=== PATIENT | female | born 1970 | race Caucasian/White ===

== ENCOUNTER 2020-03-06 13:55 | Emergency (ER) | payer BC, SELFPAY ==
[2020-03-06 14:21] LABS: Basophils Absolute Auto 0.1 K/mm3 (0.0-0.1); Basophils Percent Auto 0.7 % (0.2-1.2); Eosinophils Percent Auto 0.3 % (0-4.4); Hemoglobin 16.6 g/dL (12.0-15.0); Immature Granulocyte Absolute 0.03 K/mm3 (0.00-0.031); Immature Granulocyte Percent A 0.3 % (0-0.5); Immature Platelet Fraction Pct 3.9 % (0.9-11.2); Lymphocytes Percent Auto 14.7 % (18.3-44.2); Mean Corpuscular HGB Conc 33.2 g/dl (32-36); Mean Corpuscular Hemoglobin 31.4 pg (26-34); Mean Corpuscular Volume 94.5 fl (80-100); Mean Platelet Volume 11.2 fl (7.4-10.4); Monocytes Absolute Auto 0.5 K/mm3 (0.1-0.6); Monocytes Percent Auto 5.7 % (2.6-8.5); Neutrophils Absolute Auto 6.9 K/mm3 (1.3-6.7); Neutrophils Percent Auto 78.3 % (45.5-73.1); Platelet Count Result 140 k/mm3 (150-375); Red Blood Count 5.29 M/mm3 (4.2-5.4); Red Cell Distribution Width 13.9 % (11.5-14.5); White Blood Count 8.9 K/mm3 (4.5-10.0)
[2020-03-06 14:31] LABS: Alanine Aminotransferase 96 U/L (4-35); Albumin Level 4.5 g/dL (3.5-5.1); Alkaline Phosphatase 181 U/L (38-126); Anion Gap 14.1 mmol/L (7-16); Aspartate Amino Transferase 113 U/L (14-36); Blood Urea Nitrogen 5 mg/dL (7-17); Calcium 9.1 mg/dL (8.4-10.2); Carbon Dioxide 22 mmol/L (22-30); Chloride 100 mmol/L (98-107); Estimated CRCL calculation 183 ml/min; Estimated Glomerular Filt Rate > 60; Glucose 276 mg/dL (65-105); Lipase 48 U/L (23-300); Potassium 4.1 mmol/L (3.4-5.0); Sodium 132 mmol/L (137-145)
--- NOTE | 2020-03-06 14:52 | ED.NAVMDI ---
HPI - Nausea/Vomiting/Diarrhea General Chief complaint: Nausea/Vomiting/Diarrhea Stated complaint: dehydrated Time Seen by Provider: 03/06/20 14:43 History of Present Illness HPI Narrative: She awoke this morning feeling achey all over. She had multiple episodes of vomiting and diarrhea. She was worried that she may be dehydrated. She was able to keep down some pedialyte and is feeling slightly better now. Related Data Home Medications Medication Instructions Recorded Confirmed alprazolam 0.25 mg tablet 0.25 mg PO TID 07/19/19 02/25/20 Allergies Allergy/AdvReac Type Severity Reaction Status Date / Time amoxicillin Allergy Unknown Unknown Verified 03/06/20 14:02 lisinopril Allergy Unknown Unknown Verified 03/06/20 14:02 Review of Systems Review of Systems: All systems reviewed & are unremarkable except as noted in HPI and below Constitutional: Constitutional: Denies fever(s) ENT: Denies sore throat Cardiovascular: Cardiovascular: Denies chest pain Respiratory: Respiratory: Denies dyspnea Gastrointestinal: Gastrointestinal: Reports nausea and Reports vomiting Genitourinary: Genitourinary: Denies dysuria Neurologic: Denies dizziness and Denies weakness [facility] Past Medical History Medical History Anxiety Essential hypertension Uncontrolled type 2 diabetes mellitus with hyperglycemia Family History Family History Other Diabetes mellitus Family history of cardiovascular disease Family history of malignant neoplasm Hypertension Social History Social History Smoking status: Smoker, status unknown Alcohol intake: current Gender identity (if verbalized by the patient): Female Exam Const: General: no acute distress, alert and ill appearing Orientation/consciousness: patient oriented x3 HENMT: Head: normal to inspection Resp: Effort & Inspection: normal respiratory effort Auscultation: clear to auscultation bilaterally Cardio: Rate: regular rate Rhythm: regular rhythm GI: GI Palp: Yes Soft to palpation and No Tenderness to palpation present (GI) Skin: General skin exam: normal color Neuro: General: patient oriented x3, moves all extremities and CN's II-XI intact bilaterally Speech: normal speech Extrem: General: normal to inspection Course Vital Signs Vital signs: Vital Signs Pulse Rate 60 03/06/20 15:10 Respiratory Rate 19 03/06/20 15:10 Blood Pressure 185/100 H 03/06/20 15:10 Pulse Oximetry 100 03/06/20 15:10 Pulse Rate 75 03/06/20 17:44 Respiratory Rate 18 03/06/20 17:44 Blood Pressure 138/72 03/06/20 17:44 Pulse Oximetry 100 03/06/20 17:44 MDM - Nausea/Vomiting/Diarrhea Medical Records Attestation: I reviewed the patient's medical records. Lab Data Attestation: I reviewed the patient's lab results. Result diagrams: 03/06/20 14:09 03/06/20 14:09 Labs: Lab Results 03/06/20 03/06/20 03/06/20 Range/Units 14:06 14:09 14:09 WBC 8.9 (4.5-10.0) K/mm3 RBC 5.29 (4.2-5.4) M/mm3 Hgb 16.6 H (12.0-15.0) g/dL Hct 50.0 H (37.0-47.0) % MCV 94.5 (80-100) fl MCH 31.4 (26-34) pg MCHC 33.2 (32-36) g/dl RDW 13.9 (11.5-14.5) % Plt Count 140 L (150-375) k/mm3 MPV 11.2 H (7.4-10.4) fl Immature Gran % (Auto) 0.3 (0-0.5) % Neut % (Auto) 78.3 H (45.5-73.1) % Lymph % (Auto) 14.7 L (18.3-44.2) % [place] % (Auto) 5.7 (2.6-8.5) % Eos % (Auto) 0.3 (0-4.4) % Baso % (Auto) 0.7 (0.2-1.2) % Lymph # (Auto) 1.30 (0.9-3.2) K/mm3 [place] # (Auto) 0.5 (0.1-0.6) K/mm3 Eos # (Auto) 0.0 (0-0.3) K/mm3 Baso # (Auto) 0.1 (0.0-0.1) K/mm3 Abs Immat Gran (auto) 0.03 (0.00-0.031) K/mm3 Absolute Neuts (auto) 6.9 H (1.3-6.7) K/mm3 Absolute Nucleated RBC 0.0 (0.0-0.012)
[2020-03-06 15:07] LABS: Add Urine Microscopic? YES; Appearance Urine Clear (Clear); Bacteria Urine Trace /hpf; Bilirubin Urine Negative (Negative); Blood Urine Negative (Negative); Color Urine Yellow (Yellow); Glucose Urine UA 3+ mg/dL (Negative); Ketones Urine Negative (Negative); Leukocyte Esterase Ur Negative LEU/UL (Negative); Mucus Urine Rare /lpf; Nitrate Urine Negative (Negative); Protein Urine Negative (Negative); RBC Urine 0-2 /hpf (0-2); Specific Grav Ur 1.021 (1.001-1.035); Squamous Epithelial Cell Urine Moderate /hpf (Few); Urobilinogen Urine Negative mg/dL (<2.0); WBC Urine 0-3 /hpf
[2020-03-06] MEDS: SODIUM CHLORIDE 0.9% IV 1,000 ML 999 ML IV CONT (15:08)
[2020-03-06] MEDS: KETOROLAC 30 MG/ML VIAL (*BKC) IV PUSH (15:08)
[2020-03-06 15:10] VITALS: BP 185/100; PULSE 60; RESP 19; O2SAT 100
[2020-03-06 16:22] VITALS: BP 190/110; PULSE 65; RESP 18; O2SAT 100
[2020-03-06] MEDS: hydrALAZINE HCL 20 MG/ML VIAL IV PUSH (16:22)
[2020-03-06 17:02] LABS: Glucose Point of Care 313 (65-105)
[2020-03-06 17:44] VITALS: BP 138/72; PULSE 75; RESP 18; O2SAT 100
--- NOTE | 2020-03-11 18:44 | PC.NURSE ---
LATE ENTRY This note is being entered to document information to the patient's record. The following information was omitted on [03/11/20], by [Misty CRAGI stopped at 1608 on 03/11/20].
== END 2020-03-06 17:45 | disposition home or self-care (01) ==
PROVIDERS: Emergency Medicine; Emergency Provider Emergency Medicine; PCP Family Medicine
DX: E86.0 Dehydration (principal); R11.2 Nausea with vomiting, unspecified; F41.9 Anxiety disorder, unspecified; I10 Essential (primary) hypertension; E11.65 Type 2 diabetes mellitus with hyperglycemia; Z79.84 Long term (current) use of oral hypoglycemic drugs
CPT/HCPCS: 36415; 80053; 81001; 81025; 83690; 85025; 85055; 96361; 96374; 96375; 99284; J0360; J1885; J7030

== ENCOUNTER → 2022-07-12 07:49 | Outpatient (CLI) | payer OTHER, SELFPAY ==
--- NOTE | ~2022-07-12 | US_ITS ---
EXAMINATION: US abdomen complete DATE: 07/12/2022 08:37 INDICATION: R10.12 - Left upper quadrant pain, digestive issues. TECHNIQUE: Multiple grayscale and Doppler ultrasound images of the abdomen were obtained. COMPARISON: Limited abdominal ultrasound 10/23/2015, CT abdomen and pelvis 10/09/2015. FINDINGS: The visualized portions of the pancreas are normal. The liver is enlarged, with increased h eterogeneous parenchymal echogenicity. Dilated vessel or vessels within the hepatic parenchyma near t he surface of the liver, likely representing recanalization of the umbilical vein. Somewhat lobular a ppearance to the liver border. Reduced hepatopetal flow in the main portal vein. The gallbladder is n ormal with no abnormal wall thickening, pericholecystic fluid or stones. The common bile duct measure s 3 mm. There was no sonographic Sheets sign. The visualized portions of the aorta and inferior vena cava are normal. The right kidney measures 11.2 x 3.9 x 5.8. The left kidney measures 13.0 x 5.4 x 7.5. The kidneys de monstrate normal parenchymal echogenicity. There is no hydronephrosis. The spleen is normal in appear ance and measures 17.3 cm. IMPRESSION: Hepatosplenomegaly and cirrhosis, with portal hypertension. Decreased caliber of the portal vein, wit h decreased flow, that remains hepatofugal. Reviewed, dictated and finalized at location K. TH PROMOTION MANAGER IMPRESSION: Hepatosplenomegaly and cirrhosis, with portal hypertension. Decreased caliber o f the portal vein, with decreased flow, that remains hepatofugal.
== END ==
PROVIDERS: PCP Family Medicine; Visit Provider Physician Assistant Medical
DX: R16.2 Hepatomegaly with splenomegaly, not elsewhere classified (principal); K74.60 Unspecified cirrhosis of liver; K76.6 Portal hypertension
CPT/HCPCS: 76700

== ENCOUNTER → 2022-09-16 13:18 | Outpatient (CLI) | payer OTHER, SELFPAY ==
--- NOTE | ~2022-09-16 | US_ITS ---
EXAMINATION: US pelvic complete w TV DATE: 09/16/2022 14:15 INDICATION: Hemoglobinopathy. Low platelets. TECHNIQUE: Multiple transabdominal and endovaginal sonographic images of the pelvis were obtained. COMPARISON: None. FINDINGS: The uterus measures 8.3 x 4.5 x 4.6 cm. The endometrial complex measures 7 mm in thickness. Multiple subcentimeter anechoic nabothian cysts at the cervix measuring up to 9 mm in maximal diameter. The r ight ovary measures 3.2 x 2.0 x 2.6 cm but seen only on transabdominal imaging. The left ovary measur es 2.0 x 2.6 x 1.8 cm. 4 mm anechoic cyst/follicle in the left ovary. There is no free fluid in the p franco. IMPRESSION: 1. Nabothian cysts at the cervix. Otherwise normal premenopausal uterus with 7 mm endometrial complex . Reviewed, dictated and finalized at location A. ERCIAL LOAN UNDERWRITER IMPRESSION: 1. Nabothian cysts at the cervix. Otherwise normal premenopausal uterus with 7 mm endometrial complex.
== END ==
PROVIDERS: PCP Family Medicine; Visit Provider Family Medicine
DX: D58.2 Other hemoglobinopathies (principal)
CPT/HCPCS: 76830; 76856

== ENCOUNTER 2022-11-02 07:49 | Outpatient (CLI) | payer OTHER, SELFPAY ==
--- NOTE | ~2022-11-02 | US_ITS ---
Abdominal Sonogram: Real-time sonographic imaging of the abdomen was performed. Clinical History: Hepatosplenomegaly Findings: The liver appears echogenic, with no evidence of mass lesion or bile duct dilatation. It m easures 19.4 cm in length. There is mild nodularity of the liver surface. Main portal vein demonstrat es normal direction of flow. The spleen is enlarged, measuring 15.7 cm in length. The gallbladder is markedly distended, but otherwise appears normal with no evidence of gallstone or wall thickening. T he common bile duct measures 3 mm. The visualized pancreas, aorta, and IVC are unremarkable. The ri ght kidney measures 12.5 cm in length and the left kidney measures 12.1 cm. There is no hydronephros is or renal calculus. Impression: Diffuse fatty infiltration of the liver. Mild nodularity liver surface noted. Correlate for cirrhosis . Hepatosplenomegaly, as noted above. Markedly distended gallbladder, but no other abnormality of the gallbladder is seen. Reviewed, dictated and finalized at location M. Impression: Diffuse fatty infiltration of the liver. Mild nodularity liver surface noted. C orrelate for cirrhosis. Hepatosplenomegaly, as noted above. Markedly distended gallbladder, but no other abnormality of the gallbladder is seen.
== END 2022-11-02 07:50 | disposition home or self-care (01) ==
PROVIDERS: PCP Family Medicine; Visit Provider Family Medicine
DX: R16.2 Hepatomegaly with splenomegaly, not elsewhere classified (principal); K76.0 Fatty (change of) liver, not elsewhere classified
CPT/HCPCS: 76700

== ENCOUNTER 2022-11-10 14:26 | Outpatient (CLI) | payer OTHER, SELFPAY ==
[2022-11-10 14:47] LABS: Eosinophils Percent Auto 2.8 % (0-4.4); Hematocrit 47.2 % (37.0-47.0); Hemoglobin 15.4 g/dL (12.0-15.0); Immature Granulocyte Percent A 0.1 % (0-0.5); Immature Platelet Fraction Pct 4.5 % (0.9-11.2); Lymphocytes Percent Auto 26.5 % (18.3-44.2); Mean Corpuscular HGB Conc 32.6 g/dl (32-36); Mean Corpuscular Hemoglobin 30.6 pg (26-34); Mean Corpuscular Volume 93.8 fl (80-100); Mean Platelet Volume 10.9 fl (7.4-10.4); Neutrophils Percent Auto 60.2 % (45.5-73.1); Platelet Count Result 132 k/mm3 (150-375); Red Blood Count 5.03 M/mm3 (4.2-5.4); Red Cell Distribution Width 13.2 % (11.5-14.5); White Blood Count 8.3 K/mm3 (4.5-10.0)
[2022-11-10 14:48] LABS: Basophils Absolute Auto 0.1 K/mm3 (0.0-0.1); Basophils Percent Auto 1.4 % (0.2-1.2); Eosinophils Absolute Auto 0.2 K/mm3 (0-0.3); Immature Granulocyte Absolute 0.01 K/mm3 (0.00-0.031); Monocytes Absolute Auto 0.8 K/mm3 (0.1-0.6)
[2022-11-10 16:26] LABS: Iron 78 ug/dL (37-170)
[2022-11-10 16:57] LABS: Percent Iron Saturation 21 % (20-50)
[2022-11-10 18:32] LABS: Alanine Aminotransferase 59 U/L (6-35); Albumin Level 4.3 g/dL (3.5-5.1); Alkaline Phosphatase 148 U/L (38-126); Anion Gap 6 mmol/L (8-16); Aspartate Amino Transferase 45 U/L (14-36); Bilirubin,Total 0.8 mg/dL (0.2-1.3); Blood Urea Nitrogen 11 mg/dL (7-17); Calcium 9.2 mg/dL (8.4-10.2); Carbon Dioxide 29 mmol/L (22-30); Chloride 105 mmol/L (98-107); Estimated Glomerular Filt Rate > 60; Glucose 142 mg/dL (65-110); Potassium 5.1 mmol/L (3.4-5.0); Sodium 140 mmol/L (137-145)
[2022-11-10 22:37] LABS: Folic Acid 7.3 ng/mL (2.76->20)
[2022-11-15 23:33] LABS: Platelet Antibody, Direct IgG NEGATIVE (NEGATIVE)
== END 2022-11-10 14:27 | disposition home or self-care (01) ==
LOC: ANHLAB 14:27
PROVIDERS: PCP Family Medicine; Visit Provider Internal Medicine Hematology & Oncology
DX: D69.59 Other secondary thrombocytopenia (principal)
CPT/HCPCS: 36415; 80053; 82607; 82728; 82746; 83540; 83550; 85025; 85055; 86023

== ENCOUNTER → 2023-09-27 09:15 | Outpatient (CLI) | payer OTHER, SELFPAY ==
--- NOTE | ~2023-09-27 | US_ITS ---
US abdomen limited INDICATION: Hepatic cirrhosis. PROCEDURE: Realtime right upper abdominal ultrasound. COMPARISON: No prior studies for comparison. FINDINGS: The pancreas is normal without focal mass or pancreatic ductal dilation. Liver echotexture is increased. There is nodular liver surface, compatible with cirrhosis. No discrete hepatic mass. T here is normal directional flow in the portal vein. The gallbladder is normal without stones, gallbladder wall thickening or pericholecystic fluid. Comm on bile duct measures 3 mm. No sonographic Sheets's sign. IMPRESSION: 1: Cirrhosis of the liver with fatty infiltration. Reviewed, dictated and finalized at location A. T PROTECTION GREETER
== END ==
DX: K63.5 Polyp of colon (principal); K74.60 Unspecified cirrhosis of liver; K75.81 Nonalcoholic steatohepatitis (NASH); Z12.11 Encounter for screening for malignant neoplasm of colon; F17.200 Nicotine dependence, unspecified, uncomplicated
CPT/HCPCS: 76705

== ENCOUNTER 2024-01-17 10:08 | Outpatient (CLI) | payer OTHER, SELFPAY ==
--- NOTE | 2024-01-17 11:30 | NEURO_ITS ---
Impression: # Complains of numbness and pain in right upper extremity. # Right ulnar neuropathy across the elbow. # Abnormal Needle/EMG exam. Nerve Conduction Studies Anti Sensory Summary Table Stim Site NR Peak (ms) P-T Amp (?V) Site1 Site2 Delta-P (ms) Dist (cm) Hugo (m/s) Left Median Anti Sensory (2-3nd Digit) Wrist 2.7 73.2 Wrist 2-3nd Digit 2.7 14.0 52 Wrist 3.9 13.6 Wrist 2-3nd Digit 2.7 14.0 52 Right Median Anti Sensory (2-3nd Digit) Wrist 3.0 70.0 Wrist 2-3nd Digit 3.0 14.0 47 Wrist 2.9 60.0 Wrist 2-3nd Digit 3.0 14.0 47 Left Radial Anti Sensory (Base 1st Digit) Wrist 2.0 61.0 Wrist Base 1st Digit 2.0 0.0 Right Radial Anti Sensory (Base 1st Digit) Wrist 2.2 44.6 Wrist Base 1st Digit 2.2 0.0 Left Ulnar Anti Sensory (5th Digit) Wrist 2.3 64.5 Wrist 5th Digit 2.3 14.0 61 Right Ulnar Anti Sensory (5th Digit) Wrist 2.2 74.6 Wrist 5th Digit 2.2 14.0 64 Motor Summary Table Stim Site NR Onset (ms) O-P Amp (mV) Site1 Site2 Delta-0 (ms) Dist (cm) Hugo (m/s) Left Median Motor (Abd Poll Brev) Wrist 3.4 3.7 Elbow Wrist 5.0 29.0 58 Elbow 8.4 3.1 Right Median Motor (Abd Poll Brev) Wrist 3.0 8.1 Elbow Wrist 4.7 28.0 60 Elbow 7.7 4.3 Left Ulnar Motor (Abd Dig Minimi) Wrist 2.7 9.4 A Elbow Wrist 5.3 31.0 58 A Elbow 8.0 8.4 Right Ulnar Motor (Abd Dig Minimi) Wrist 2.4 8.0 A Elbow Wrist 5.9 29.0 49 A Elbow 8.3 6.9 B Elbow Wrist 3.8 19.0 50 B Elbow 6.2 6.1 F Wave Studies NR F-Lat (ms) L-R F-Lat (ms) Left Median (Mrkrs) (Abd Poll Brev) 28.44 0.06 Right Median (Mrkrs) (Abd Poll Brev) 28.50 0.06 Left Ulnar (Mrkrs) (Abd Dig Min) 28.07 0.88 Right Ulnar (Mrkrs) (Abd Dig Min) 28.95 0.88 EMG Side Muscle Nerve Root Ins Act Fibs Amp Dur Recrt Comment Right 1stDorInt Ulnar C8-T1 Nml Nml Incr >12ms +1 Right Ext Indicis Radial (Post Int) C7-8 Nml Nml Nml Nml Nml Right Ext Digitorum Radial (Post Int) C7-8 Nml Nml Nml Nml Nml Right BrachioRad Radial C5-6 Nml Nml Nml Nml Nml Right PronatorTeres Median C6-7 Nml Nml Nml Nml Nml Right Abd Poll Brev Median C8-T1 Nml Nml Nml Nml Nml Right ABD Dig Min Ulnar C8-T1 Nml Nml Incr >12ms +1 Left 1stDorInt Ulnar C8-T1 Nml Nml Nml Nml Nml Left Ext Indicis Radial (Post Int) C7-8 Nml Nml Nml Nml Nml Left Ext Digitorum Radial (Post Int) C7-8 Nml Nml Nml Nml Nml Left BrachioRad Radial C5-6 Nml Nml Nml Nml Nml Left PronatorTeres Median C6-7 Nml Nml Nml Nml Nml Left Abd Poll Brev Median C8-T1 Nml Nml Nml Nml Nml Left ABD Dig Min Ulnar C8-T1 Nml Nml Nml Nml Nml MTDD
== END 2024-01-17 10:09 | disposition home or self-care (01) ==
LOC: ANHNEURO 10:11
PROVIDERS: PCP Family Medicine; Visit Provider Family Medicine
DX: R20.0 Anesthesia of skin (principal); R20.2 Paresthesia of skin
CPT/HCPCS: 95886; 95911

== ENCOUNTER 2024-02-13 12:48 | Outpatient (CLI) | payer OTHER, SELFPAY ==
[2024-02-13 13:16] LABS: Blood Urea Nitrogen 9 mg/dL (8-26); Carbon Dioxide 24 mmol/L (22-30); Chloride 104 mmol/L (98-109); Estimated Glomerular Filt Rate > 60; Glucose 138 mg/dL (70-105); Ionized Calcium (POC) 1.04 mmol/L (1.11-1.31); Potassium 4.8 mmol/L (3.5-4.9); Sodium 140 mmol/L (138-146)
[2024-02-13 13:16] LABS: Hematocrit 48.2 % (37.0-47.0); Immature Platelet Fraction Pct 4.1 % (0.9-11.2); Mean Corpuscular HGB Conc 33.2 g/dl (32-36); Mean Corpuscular Hemoglobin 32.5 pg (26-34); Mean Platelet Volume 10.8 fl (7.4-10.4); Platelet Count Result 98 k/mm3 (150-375); Red Blood Count 4.92 M/mm3 (4.2-5.4); Red Cell Distribution Width 14.7 % (11.5-14.5); White Blood Count 5.5 K/mm3 (4.5-10.0)
== END 2024-02-13 12:49 | disposition home or self-care (01) ==
LOC: ANHLAB 12:52
PROVIDERS: Nurse Practitioner Family; PCP Family Medicine; Visit Provider Internal Medicine Hematology & Oncology
DX: D75.1 Secondary polycythemia (principal)
CPT/HCPCS: 36415; 80047; 85027; 85055

== ENCOUNTER 2024-10-16 00:39 | Day surgery (SDC) | payer OTHER, SELFPAY ==
[2024-10-04 14:31] VITALS: BMI 31.5
--- NOTE | 2024-10-04 14:33 | PC.NURSE ---
Report to the Outpatient Waiting Room, entrance under the green pavilion located off [facility], at time _1230_ on date _[id number]_. Planned Procedure Time: _230pm_.? Time changes happen often and if your time is changed the preop area will call you the afternoon before. - You and your visitor will be asked to self-screen and do not enter if you have any COVID symptoms. Please call surgeon if you need to reschedule. - A mask is optional within the hospital at this time. May have clear liquids (water, carbonated beverages, clear teas, apple juice) until 630am prior to surgery with a maximum of 20 ounces. Nothing to drink after 630am - No food from midnight until time of surgery and no smoking, or chewing tobacco (or any form of nicotine). No chewing gum, candy or mints. Take only the following medications with a SIP of water on the morning of surgery: ____Metoprolol and if needed Alprazolam____ DO NOT STOP ANY OF YOUR OTHER PRESCRIPTION MEDICATIONS PRIOR TO SURGERY EXCEPT THE FOLLOWING Hold all vitamins and supplements for 3 days per anesthesiologist. Medications to discontinue per physician Date to take last dose Please no make-up, nail puerto rican, hairspray, perfume, deodorant, or body powder the day of surgery.? No jewelry (including any body piercings) or valuables the day of surgery, leave them at home.? Please take a shower or bath the night before, or the morning of, surgery with an antibacterial soap.? Wear comfortable, loose fitting clothing.? - Jewelry must be removed prior to entering the operating room.? Rings and piercings that are not removed may be cut off. - The hospital will not accept responsibility for valuables.? - Please leave all valuables, including medications, at home the day of surgery. If you are going home after surgery, a licensed team cdl driver must drive you home.? - NO public transportation without another adult if you receive anesthesia. - We recommend that an adult stay with you for 24 hours following discharge. - We also recommend that you do not drive, make important decision, drink alcoholic beverages, or take any drugs that were not prescribed by your health care provider for at least 24 hours after your discharge time. Follow any additional instructions given to you from your surgeon. Telephone instructions given to __Diane__and asked if any additional questions and then verbalized understanding. Patient advised to call surgeon office or pre surgery nurse liaison [phone] if any additional questions.
--- OUTSIDE RECORDS SUMMARY | 2024-10-16 00:42 | XMS_ITS | Clinical Summary ---
Author Organization [facility] Address [address] [place] [address] Care Team Providers Care Medicare Nurse Name Role Phone Jean Carlos Huntley MD Primary Care Provider [phone] Allergies Active Allergy Reactions Criticality Noted Date Comments Amoxicillin Rash Low 11/10/2022 Medications metFORMIN (GLUCOPHAGE XR) 500 mg Extended Release 24 hour tablet Take 500 mg by mouth daily. 10/04/2022 Active metoprolol succinate (TOPROL XL) 25 mg Extended Release 24 hour tablet 11/10/2022 Active rosuvastatin (CRESTOR) 20 mg tablet Take 20 mg by mouth daily. 09/12/2022 Active losartan (COZAAR) 50 mg tablet TAKE 1 AND 1/2 TABLETS BY MOUTH DAILY 10/04/2022 Active ALPRAZolam (XANAX) 0.25 mg tablet Take 0.25 mg by mouth nightly as needed for Anxiety. Active empagliflozin (Jardiance) 10 mg tablet 05/12/2023 Active pantoprazole (PROTONIX) 40 mg Tablet, Delayed Release (E.C.) Take 40 mg by mouth daily. 11/19/2023 Active Active Problems No known active problems Encounters Date Type Department Care Team Description 10/12/2024 External Device Data [facility] ABSTRACTION Provider, Abstract 10/11/2024 External Device Data [facility]STRACTION Provider, Abstract 10/09/2024 External Device Data [facility]STRACTION Provider, Abstract 09/25/2024 External Device Data [facility] Provider, Abstract 09/17/2024 External Device Data [facility]CTION Provider, Abstract 09/17/2024 External Device Data [facility]STRACTION Provider, Abstract 09/17/2024 External Device Data [facility] ABSTRACTION Provider, Abstract from Last 3 Months Family History Medical History Relation Name Comments Diabetes Brother Cancer Father Diabetes Father Heart Disease Father Diabetes Mother Heart Disease Mother Uterine Cancer Mother Heart Disease Sister Relation Name Status Comments Brother Alive Father Mother Alive Sister Social History Tobacco Use Types Packs/Day Years Used Date Smoking Tobacco: Every Day Cigarettes 1 25.7 Started: 02/12/1999 Smokeless Tobacco: Never Tobacco Cessation:Ready to Q uit: Not Asked; Counseling Given: Not Answered Alcohol Use Standard Drinks/Week Comments Not Currently 0 (1 standard drink = 0.6 oz pur e alcohol) Comments Unknown Sex and Gender Information Value Date Recorded Sex Assigned at Not on file Legal Sex Female 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 Gender Identity Not on file Sexual Orientation Not on file Last Filed Vital Signs Vital Sign Reading Time Taken Comments Blood Pressure 164/95 02/13/2024 1:19 PM CDT has not taken medication today Pulse 79 02/13/2024 1:15 PM CDT Temperature 36.6 C (97.9 F) 02/13/2024 1:15 PM CDT Respiratory Rate 15 02/13/2024 1:15 PM CDT Oxygen Saturation 96% 02/13/2024 1:1 5 PM CDT Inhaled Oxygen Concentration - - Weight 100.1 kg (220 lb 9.6 oz) 02/13/2024 1:15 PM CDT Height 175.3 cm (5' 9 ) 11/10/2022 1:20 PM CDT Body Mass Index 32.58 11/10/2022 1:20 PM CDT Plan of Treatment Health Maintenance Due Date Last Done Comments DIABETES ANNUAL FOOT EXAM 1989 DIABETES ANNUAL RETINAL EXAM 1989 DIABETES HBA1C Q 6 MONTHS 1989 DIABETES MICROALBUMIN ANNUAL SCREEN 1989 LDL CHOLESTEROL ANNUAL 1989 DTAP/TDAP/TD VACCINES (1 - Tdap) 1990 HEPATITIS B VACCINES (1 of 3 - 19+ 3-dose series) 1990 CERVICAL CANCER SCREENING 2001 BREAST CANCER SCREENING 2011 FIT-DNA Q 3 years 2016 FIT/FOBT Q 1 year 2016 Flex Sig/CT Colonography Q 5 years 2016 Lung Cancer Screening 2021 ZOSTER VACCINE (1 of 2) 2021 INFLUENZA VACCINE (#1) 2024 COLORECTAL SCREENING 03/03/2033 03/03/2023, 03/03/20 Colorectal Cancer Screening 03/03/2033 Insurance [employer] [facility] [id number] [facility] Address: [facility] [id number] [place] [address] Care Teams Medicare Nurse Relationship Specialty Start Date End Date Jean Carlos Huntley MD [address] [place] [address] PCP - General Family Practice 11/10/22
--- OUTSIDE RECORDS SUMMARY | 2024-10-16 00:42 | XMS_ITS | Clinical Summary ---
Author Organization [facility] [address] Address [address] [place] [address] Care Team Providers Care Ramp Jockey Name Role Phone Jean Carlos Huntley MD Primary Care Provider [phone] Allergies Active Allergy Reactions Criticality Noted Date Comments Amoxicillin Rash Medium 08/14/2019 Lisinopril Cough Low 01/24/2023 Medications rosuvastatin (CRESTOR) 40 mg tablet Take 1 tablet (40 mg total) by mouth daily Active ALPRAZolam (NIRAVAM) 0.25 mg disintegrating tablet Take 1 tablet (0.25 mg total) by mouth nightly as needed for anxiety Active losartan (COZAAR) 50 mg tablet Take 1 tablet (50 mg total) by mouth daily Active metFORMIN (FORTAMET) 500 mg 24 hr tablet Take 1 tablet (500 mg total) by mouth daily with breakfast Active empagliflozin (JARDIANCE) 10 mg tablet 1 tablet (10 mg total) daily [address] (PROTONIX) 40 mg EC tablet Take 1 tablet (40 mg total) by mouth daily 90 tablet 3 3 Active metoprolol XL (TOPROL-XL) 25 mg extended release tablet Take 1 tablet (25 mg total) by mouth daily 4 Active Active Problems Problem Noted Date Diagnosed Date Hepatic cirrhosis 01/04/2024 Benign colon polyp 08/01/2023 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 Downing presents for compensated cirrhosis likely 2/2 to CARDENAS. Other etiologies ruled out from previous provider, this is likely CARDENAS Cirrhosis given underlying metabolic syndrome (DM2, HTN, BMI 35). Imaging with evidence of dilated hepatic vessels, recanalized umbilical vein, splenomegaly, since at least 2015. She was diagnosed with mononucleosis earlier this year. She complains of intermittent left upper quadrant and mid abdominal pain since July. The pain is likely not related liver or biliary. She denies clinical manifestations of advanced liver disease such as hepatic encephalopathy or ascites. Will obtain updated lab work today to evaluate the current liver synthetic function (CBC, CMP, INR), Alpha-Fetoprotein tumor marker and rule out Celiac disease and autoimmune. - Ascites: No ascites appreciated on today's exam. Ultrasound 10/2022 reveals no ascites. - Varices: Imaging findings of dilated hepatic vessels, recanalized umbilical vein, splenomegaly. History of thrombocytopenia, Plt 132K. Recommend endoscopy for variceal screening. Will schedule at [facility]. - HE: Denies. - HCC screening: Last Ultrasound 11/02/2022 which showed no liver lesions, no ascites. Will continue to screen every 6 months for hepatocellular carcinoma with ultrasound and Alpha Fetoprotein Tumor (AFP). Next ultrasound to be scheduled locally at [facility] per patient preference in May 2023. - Immunity: Will check HAV/HBV immune status with lab work today. If immunity is not detected, will recommend HAV/HBV for protection. - Lifestyle: Avoid alcohol completely and possible hepatotoxins (herbal/dietary supplements). Limit acetaminophen to 2,000 mg/24h as needed. Recommend continued efforts for diet and exercise as well as glucose management. Screening for colon cancer 01/24/2023 Assessment & Plan (01/24/2023 2:39 PM CDT): Colonoscopy for colorectal cancer screening. To be scheduled same day at Endoscopy for variceal screening. Palpitations 08/14/2019 Premature atrial contractions 08/14/2019 Tobacco abuse 08/14/2019 Obesity (BMI 35.0-39.9 without comorbidity) 03/2020 Hypertension associated with diabetes 08/14/2019 Dyslipidemia associated with type 2 diabetes carla litus 08/14/2019 Encounters Date Type Department Care Team Description 09/23/2024 Telephone [facility] Gastroenterology [address] [place] [address] [place] [phone] Connie Grace Appointment from Last 3 Months Surgical History Surgery Date Site/Laterality Comments SPINAL FUSION COLONOSCOPY UPPER GASTROINTESTINAL ENDOSCOPY Medical History Medical History Date Comments Diabetes mellitus (HCC) Hypertension Type 2 diabetes mellitus (HCC) Colon polyp Liver disease Family History Medical History Relation Name Comments Bladder Cancer Father Heart attack Father Coronary artery disease Mother Heart attack Sister Relation Name Status Comments Father Mother Alive Sister Social History Tobacco Use Types Packs/Day Years Used Date Smoking Tobacco: Every Day Cigarettes Smokeless Tobacco: Never Tobacco Cessation:Ready to Q uit: Not Asked; Counseling Given: Not Answered AUDIT-C Answer Date Recorded Q1: How often do you have a drink containing alc ohol? 2-3 times a week 03/25/2024 Q2: How many drinks containi ng alcohol do you have on a typical day when you are drinking? 1 or 2 03/25/2024 Frequency of Binge Drinking Not on file 03/07 Personal Safety Answer Date Recorded Have you ever been in or are you currently in a harmful physical or emotional relationship or is someone making you feel afraid or unsafe? 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 Gender Identity Not on file Sexual Orientation Not on file Obstetrics History Last Filed Vital Signs Vital Sign Reading Time Taken Comments Blood Pressure 106/76 03/25/2024 10:55 AM CDT Pulse 94 03/25/2024 10:55 AM CDT Temperature 36 C (96.8 F) 03/25/2024 10:35 AM CDT Respiratory Rate 19 03/25/2024 10:5 5 AM CDT Oxygen Saturation 100% 03/25/2024 10: 55 AM CDT Inhaled Oxygen Concentration - - Weight 101.4 kg (223 lb 9.6 oz) 03/19/2024 9:37 AM CDT Height 175.3 cm (5' 9 ) 03/19/2024 9:37 AM CDT Body Mass Index 33.02 03/19/2024 9:37 AM CDT Plan of Treatment Health Maintenance Due Date Last Done Comments Albumin Creatinine Ratio, Urine 1971 Breast Cancer Screening-Mammogram 1971 Cervical Cancer Screening 1971 Depression Screening 1971 Hemoglobin A1C 1971 Hepatitis C Screening 1971 Dilated Eye Exam 1971 Foot Exam 1971 DTaP/Tdap/Td Vaccine (1 - Tdap) 1982 Hepatitis B Screening 1989 Regular Well Visit/Exam 18-64 1989 Pneumococcal vaccine <65 (1 of 2 - PCV) 1990 Lipid Panel 08/14/2020 08/14/2019 Zoster Vaccine (1 of 2) 2021 eGFR 01/25/2024 01/24/2023 Covid-19 Vaccine (5 - 2023-2 5 season) 2024 06/20/2022, 05/19/2021, 10/23/2020, Additional history exists Influenza Vaccine (#1) 2024 , 05/19/2021, 06/08/2020 Colon Cancer Screening-Colonoscopy 03/25/20342023, 03/03/2023 Procedures Procedure Name Priority Date/Time Associated Diagnosis Comments COLONOSCOPY 03/25/2024 9:39 AM CDT EGFR Routine 01/24/2023 10:45 AM CDT Liver cirrhosis secondary to CARDENAS (HCC) POCT LIPID PANEL Routine 08/14/2019 4:32 PM PARK MANAGER Dyslipidemia associated with type 2 diabetes mellitus (HCC) from Last 3 Months or Most Recently Relevant to Health Maintenance Results * Colonoscopy (03/25/2024 9:39 AM CDT) Anatomical Region Laterality Modality Other Narrative Procedure Note Eliseo Hairston MD - 03/25/2024 9:39 AM CDT [facility] END[facility] Patient Name: Gracy Frias Procedure Date: 03/25/2024 9:39 AM Date of : 1970 Admit Type: Outpatient Age: 53 Gender: Female Attending MD: Eliseo Hairston M.D. Room: [facility] 8 Note Status: Finalized Procedure: Colonoscopy Indications: High risk colon cancer surveillance: Personalhistory of colonic polyps, Last colonoscopy: February 2023 Referring MD: Clarice Dos Santos MD Providers: Eliseo Hairston M.D. Medicines: Monitored Anesthesia Care Complications: No immediate complications. Estimated Blood Loss: Estimated blood loss was minimal. Procedure: Pre-Anesthesia Assessment: - [place] Protocol: - Pre-procedure Verification: Prior to theprocedure, the patient's identity was verified by full name,date of and medical record number. The patient's identity was verified on all pertinent medical records, including History and Physical. Also priorto the procedure, a History and Physical wasperformed, and patient medications, allergies andsensitivities were reviewed. The patient's tolerance of previous anesthesia was reviewed. The patient is competent.The risks and benefits of the procedure and thesedation options and risks were discussed with the patient.All questions were answered and informed consent was obtained. - Time-Out: Prior to the start of the procedure,the patient's identification, proposed procedure,accurate signed consent, correctly labeled images andrecords, and need for prophylactic antibiotics were verifiedby the physician, the nurse and the stained glass window designer in the endoscopy suite. - Immediately prior to administration ofmedications, the patient was re-assessed for adequacy to receive sedatives. - The risks and benefits of the procedure and the sedation options and risks were discussed with the patient. All questions were answered and informed consent was obtained. The benefits, risks and alternatives of theprocedure and sedation were discussed and informed consentwas obtained. All questions were answered. Please referto the signed informed consent document in the medical record. The scope was passed under direct vision.The CF [id number] endoscope was introduced through the anus and advanced to the cecum, identified by appendiceal orifice and ileocecal valve. The colonoscopy was performed without difficulty. The patient tolerated the procedure well. The qualityof the bowel preparation was evaluated using the BBPS ([place] Bowel Preparation Scale) with scores of:Right Colon = 3, Transverse Colon = 3 and Left Colon = 3 (entire mucosa seen well with no residual staining, small fragments of stool or opaque liquid). Thetotal BBPS score equals 9. The ileocecal valve,appendiceal orifice, and rectum were photographed. The bowel preparation used was GoLYTELY via split dose instruction. The quality of the bowel preparationwas excellent. AI Technology was utilized during the procedure to aid in polyp detection. Findings: The perianal and digital rectal examinations were normal. A 3 mm polyp was found in the transverse colon. The polyp wassessile. The polyp was removed with a jumbo cold forceps. Resection andretrieval were complete. Two sessile polyps were found in the descending colon. The polypswere 1 to 3 mm in size. These polyps were removed with a jumbo cold forceps. Resection and retrieval were complete. Three sessile polyps were found in the rectum. The polyps were 2 to 4mm in size. These polyps were removed with a jumbo cold forceps.Resection and retrieval were complete. Non-bleeding internal hemorrhoids were found during retroflexion. The hemorrhoids were mild. Impression: - One 3 mm polyp in the transverse colon, removedwith a jumbo cold forceps. Resected and retrieved. - Two 1 to 3 mm polyps in the descending colon, removed with a jumbo cold forceps. Resected and retrieved. - Three 2 to 4 mm polyps in the rectum, removedwith a jumbo cold forceps. Resected and retrieved. - Non-bleeding internal hemorrhoids. Recommendation: - Await pathology results. - Given cirrhosis liver disease, it's best to completely avoid alcohol, even sips of alcohol, to preserve liver health. - Repeat colonoscopy in 3-5 years. If 3-6 polypsare adenomas, then repeat in 3 years. If 1-2 adenomas, then repeat in 5 years. If all polps are normal tissue, then repeat in 5 years. - High fiber diet. - Because of the polyps removed today were in the rectum, anticipate you will have pink/bloody toilet water in the toilet bowl, but should otherwise feel fine; this will be expected; would not anticipate multiple black or maroon colored poop within a few hours nor would expect you to be feelinglightheaded or faint. Those would be red flag symptoms thatwould prompt going to the ER (just to provide a heads-up, but I don't anticipate this will occur, since the polyps removed today were all very small). Electronically signed by Eliseo Hairston MD Eliseo Hairston M.D. 03/25/2024 10:38:58 AM . Number of Addenda: 0 Note Initiated On: 03/25/2024 9:39 AM us Eliseo Hairston MD ENDOSCOPY PROCEDURES Final Res ult * eGFR (01/24/2023 10:45 AM CDT) eGFR >90 90 - 130 mL/min/1. 73 m2 [facility] Comment: Interpretive Data Reference Interval Normal >/= 90 mL/min/1.73m2 Mildly decreased* 60 - 89 mL/min/1.73m2 Mildly to moderately decreased 45 - 59 mL/min/1.73m2 Moderately to severely decreased 30 - 44 mL/min/1.73m2 Severely decreased 15 - 29 mL/min/1.73m2 Kidney Failure < 15 mL/min/1.73m2 *Relative to young adult level Estimated glomerular filtration rate is determined by the 2020 CKD-EPI equation recommended by the National Kidney Foundation (A Unifying Approach to GFR Estimation: Recommendations of the NKF-ASK Task Force on Reassessing the Inclusion of Race in Diagnosing Kidney Disease, JASN 2020). The CKD-EPI equation should not be used for patients with unstable renal function and has not been validated in children and those over 70. Current interpretive data was last reviewed 2021. Blood 01/24/2023 10:4 5 AM CDT 01/24/2023 11:06 AM CDT us Eliseo Hairston MD LAB BLOOD ORDERABLES Final Res ult [facility] Department [place] [address] * POCT lipid panel (08/14/2019 4:32 PM PARK MANAGER) Cholesterol, POC 318 mg/dL HDL, POC 49 mg/dL Triglycerides, POC 256 mg/dL LDL Cholesterol POC 217 mg/dL Chol/HDL Ratio, POC 6.5 Non-HDL Cholesterol, POC 268 mg/dL Cholesterol Total, POC 318 mg/dL Blood spot 08/14/2019 4:32 PM PARK MANAGER us Nico Wheeler MD POINT OF CARE TEST ORDER GARRY Final Result from Last 3 Months or Most Recently Relevant to Health Maintenance Insurance [facility] [employer] [facility] HMO/PPO Address: [facility] [address] [place] [address] [facility] H[facility]/PPO Address: [place] [address] Advance Directives For more information, please contact: [phone] * Full Code (Latest Code Status on File) Date Activated Date Inactivated Comments 03/25/2024 9:23 AM 03/25/2024 4:42 PM * Full Code Date Activated Date Inactivated Comments 03/03/2023 8:06 AM 03/03/2023 3:06 PM Care Teams Ramp Jockey Relationship Specialty Start Date End Date Jean Carlos Huntley MD PCP - General Family Medicine 05/31/19
--- OUTSIDE RECORDS SUMMARY | 2024-10-16 00:42 | XMS_ITS | Referral Summary ---
Author Organization [facility] Address [address] [place] [address] Care Team Providers Care Ribbon Cleaner Name Role Phone Jean Carlos Huntley MD Primary Care Provider [phone] Source Comments [facility],non-owned Affiliates and Associated Physician Practices is amultiple site organization consisting of ambulatory clinics and hospital sitesin [place], [place], [place] and [place]. This disclosure is being madepursuant to the Care Everywhere program and may not contain all information available regarding this patient. Last updated 18.[facility] Skype Social History Tobacco Use Types Packs/Day Years Used Date Smoking Tobacco: Never Assessed Sex and Gender Information Value Date Recorded Sex Assigned at Not on file Gender Identity Not on file Sexual Orientation Not on file Last Filed Vital Signs Vital Sign Reading Time Taken Comments Blood Pressure 154/103 06/24/2016 1:10 PM [employer]AG [employer] Pulse 80 06/24/2016 1:10 PM [employer] Temperature 36.7 C (98.1 F) 06/24/2016 1:10 PM [employer]TER Respiratory Rate 18 06/24/2016 1:10 PM [employer]TER Oxygen Saturation 96% 06/24/2016 1:10 PM R[employer] Inhaled Oxygen Concentration - - Weight 102.2 kg (225 lb 6.4 oz) 06/24/2016 1:10 PM RAG [employer]TER [employer] C[employer]TER Height 175.3 cm (5' 9 ) 06/24/2016 1:10 PM RAG [employer]TER [employer]TER Body Mass Index 33.29 06/24/2016 1:10 PM RAG [employer]TER Plan of Treatment Not on file Care Teams Ribbon Cleaner Relationship Specialty Start Date End Date Jean Carlos Huntley MD [address] [place] [id number] PCP - General 07/26/22
--- OUTSIDE RECORDS SUMMARY | 2024-10-16 00:42 | XMS_ITS | Patient Health Summary ---
Author Organization [facility] Address [address] [place] [address] Care Team Providers Care Learning Consultant Name Role Phone Jean Carlos Huntley MD Primary Care Provider [phone] Note from [facility],non-owned Affiliates and Associated Physician Practices is amultiple site organization consisting of ambulatory clinics and hospital sitesin [place], [place], [place] and [place]. This disclosure is being madepursuant to the Care Everywhere program and may not contain all information available regarding this patient. Last updated 18.[facility] Social History Tobacco Use Types Packs/Day Years Used Date Smoking Tobacco: Never Assessed Sex and Gender Information Value Date Recorded Sex Assigned at Not on file Gender Identity Not on file Sexual Orientation Not on file Last Filed Vital Signs Vital Sign Reading Time Taken Comments Blood Pressure 154/103 06/24/2016 1:10 PM SCENIC DESIGNER Pulse 80 06/24/2016 1:10 PM SCENIC DESIGNER Temperature 36.7 C (98.1 F) 06/24/2016 1:10 PM SCENIC DESIGNER Respiratory Rate 18 06/24/2016 1:10 PM SCENIC DESIGNER Oxygen Saturation 96% 06/24/2016 1:10 PM SCENIC DESIGNER Inhaled Oxygen Concentration - - Weight 102.2 kg (225 lb 6.4 oz) 06/24/2016 1:10 PM SCENIC DESIGNER Height 175.3 cm (5' 9 ) 06/24/2016 1:10 PM SCENIC DESIGNER Body Mass Index 33.29 06/24/2016 1:10 PM SCENIC DESIGNER Procedures * COMPREHENSIVE METABOLIC PANEL(Performed 06/23/2016) * CBC W AUTO DIFFERENTIAL(Performed 06/23/2016) * CT ABDOMEN MULTI PHASE W CONT(Performed 06/17/2016) * CREATININE BLOOD - POCT (IP) [facility](Performed 06/17/2016) * SMOOTH MUSCLE ANTIBODY(Performed 03/25/2016) * MITOCHONDRIAL ANTIBODY SCREEN(Performed 03/25/2016) * QGIJM-1-XABSTIWVGRO BLOOD PHENOTYPING PANEL(Performed 03/25/2016) * CERULOPLASMIN(Performed 03/25/2016) * TRANSFERRIN(Performed 03/25/2016) * IRON BLOOD(Performed 03/25/2016) * FERRITIN(Performed 03/25/2016) * PT-INR [facility](Performed 03/25/2016) * CBC W AUTO DIFFERENTIAL(Performed 03/25/2016) * COMPREHENSIVE METABOLIC PANEL(Performed 03/25/2016) Results * (ABNORMAL) CBC W AUTO DIFFERENTIAL (06/23/2016 1:16 PM SCENIC DESIGNER) Only the most recent of2 resultswithin the time period is included. WBC 11.3(H) 3.4 - 10.8 x10E3/uL [facility] (BEAKER) RBC 5.08 3.77 - 5.28 x10E6/uL [facility] (BEAKER) Hemoglobin 14.0 11.1 - 15.9 g/dL [facility] (BEAKER) Hematocrit 43.3 34.0 - 46.6 % [facility] (BEAKER) MCV 85 79 - 97 fL [facility] (BEAKER) MCH 27.6 26.6 - 33.0 pg [facility] (BEAKER) MCHC 32.3 31.5 - 35.7 g/dL [facility] (BEAKER) RDW-CV 15.2 12.3 - 15.4 % [facility] (BEAKER) Platelet 161 150 - 379 x10E3/uL [facility] (BEAKER) Neutrophils % 65 % [facility] (BEAKER) Lymphocytes % 29 % [facility] (BEAKER) Monocytes % 5 % [facility] (BEAKER) Eosinophils % 1 % [facility] (BEAKER) Basophil % 0 % [facility] (BEAKER) Neutrophils Absolute 7.2(H) 1.4 - 7.0 x10E3/uL [facility] (BEAKER) Lymphocyte Absolute Manual 3.3(H) 0.7 - 3.1 x10E3/uL [facility] (BEAKER) Monocytes Absolute 0.6 0.1 - 0.9 x10E3/uL [facility] (BEAKER) Eosinophils Absolute Manual 0.2 0.0 - 0.4 x10E3/uL [facility] (BEAKER) Basophil Absolute Manual 0.1 0.0 - 0.2 x10E3/uL [facility] (BEAKER) Immature Granulocytes % 0 % [facility] (BEAKER) Immature Granulocytes absolute 0.0 0.0 - 0.1 x10E3/uL [facility] (BEAKER) Blood specimen (specimen) BLOOD SPECIMEN / Unknown 06/23/2016 1:16 PM SCENIC DESIGNER 06/23/2016 Narrative [facility] (BEAKER) - 06/24/2016 7:13 AM SCENIC DESIGNER Performed at: [address] [place] [address] [id number] Occupational Therapy Director: Tan Groves PhD, Phone: [phone] Brandon Velasquez MD LAB - HEMATOLOGY ORD ERABLES [facility] ([facility] * (ABNORMAL) COMPREHENSIVE METABOLIC PANEL (06/23/2016 1:16 PM SCENIC DESIGNER) Only the most recent of2 resultswithin the time period is included. Glucose 146(H) 65 - 99 mg/dL [facility] (BEAKER) BUN 12 6 - 24 mg/dL [facility] (BEAKER) Creatinine 0.71 0.57 - 1.00 mg/dL [facility] (BEAKER) eGFR non- 104 >59 mL/min/1.7 3 [facility] (BEAKER) eGFR 120 >59 mL/min/1.7 3 [facility] (BEAKER) BUN/Creatinine Ratio 17 9 - 23 [facility] (BEAKER) Sodium 138 136 - 144 mmol/L [facility] (BEAKER) Potassium 4.3 3.5 - 5.2 mmol/L [facility] (BEAKER) Chloride 101 97 - 106 mmol/L [facility] (BEAKER) CO2 20 18 - 29 mmol/L [facility] (BEAKER) Calcium 8.9 8.7 - 10.2 mg/dL [facility] (BEAKER) Protein Total 6.8 6.0 - 8.5 g/dL [facility] (BEAKER) Albumin 4.2 3.5 - 5.5 g/dL [facility] (BEAKER) Globulin Total 2.6 1.5 - 4.5 g/dL [facility] (BEAKER) Albumin/Globulin Ratio 1.6 1.1 - 2.5 [facility] (BEAKER) Bilirubin Total 0.7 0.0 - 1.2 mg/dL [facility] (BEAKER) Alkaline Phosphatase 92 39 - 117 IU/L [facility] (BEAKER) AST 15 0 - 40 IU/L [facility] (BEAKER) ALT 14 0 - 32 IU/L [facility] (BEAKER) Blood specimen (specimen) BLOOD SPECIMEN / Unknown 06/23/2016 1:16 PM SCENIC DESIGNER 06/23/2016 Narrative [facility] (BEAKER) - 06/24/2016 7:13 AM SCENIC DESIGNER Performed at: [address] [place] [address] [id number] Occupational Therapy Director: Tan Groves PhD, Phone: [phone] Brandon Velasquez MD LAB - CHEMISTRY DWAIN [facility] Organization Address City/State/ZIP Co de Phone Number [facility] (BEAKER) * CT ABDOMEN MULTI PHASE W CONT (06/17/2016 4:06 PM SCENIC DESIGNER) Anatomical Region Laterality Modality Other Impressions 06/17/2016 5:32 PM SCENIC DESIGNER IMPRESSION: 1. Nodular hepatic surface with hypertrophy of the caudate lobe suggestive of parenchymal liver disease. No arterially-enhancing hepatic lesions with washout or pseudocapsule formation concerning for hepatocellular carcinoma. A 0.6 cm arterially enhancing observation in the right hepatic lobe, hepatic segment 8/5 likely represents vascular shunting (LR 3). Attention on follow-up is recommended. Dictated by Jennifer Strickland M.D. (certified prosthetist vice president). Dr. Mariam Bee M.D. have personally reviewed and interpreted this examination/study. This report was electronically signed by Mariam LAWS M.D. on 06/17/2016 5:32 PM . Narrative 06/17/2016 5:32 PM SCENIC DESIGNER EXAMINATION: Computed tomography (CT) of the abdomen with contrast HISTORY: Suspected Cirrhosis Based Upon Outside Imaging TECHNIQUE: CT of the abdomen was performed following the uneventful administration of 100 mL of Omnipaque 350 intravenous contrast according to a three-phase liver protocol. COMPARISON: None. FINDINGS: The aorta is atherosclerotic but normal in caliber. The visible lung bases are clear. The heart size is normal without pericardial effusion. Surface nodularity of the liver as well as caudate lobe hypertrophy is suggestive of hepatic cirrhosis. No arterially-enhancing liver lesion suspicious for hepatocellular carcinoma is identified. There is a small there are 0.6 cm arterially enhancing observation along the periphery of the right hepatic lobe, in hepatic segment 8/5 (series 6 image 80) without evidence of washout or pseudocapsular enhancement, most likely representing vascular shunting. The hepatic arterial anatomy is conventional. The portal vein is patent. The umbilical vein is recanalized. No ascites or varices is identified. The spleen is enlarged and measures 14 cm in axial dimension. The gallbladder is normal without evidence of wall thickening, pericholecystic fluid, or gallstones. The intrahepatic and extrahepatic bile ducts are nondilated. The pancreas and adrenal glands are normal. The kidneys enhance symmetrically. There is no evidence of renal calculus or hydronephrosis. The distal esophagus and stomach appear normal. The visualized portions of the small bowel and large bowel are normal in caliber without evidence of wall thickening or obstruction. No free intraperitoneal air is seen. No lymphadenopathy is identified. Bone windows demonstrate no suspicious lytic or blastic lesions. A disc spacer is present at L4-5. Procedure Note Pita Laws MD - 11/04/2017 EXAMINATION: Computed tomography (CT) of the abdomen with contrast HISTORY: Suspected Cirrhosis Based Upon Outside Imaging TECHNIQUE: CT of the abdomen was performed following the uneventfuladministration of 100 mL of Omnipaque 350 intravenous contrast accordingto a three-phase liver protocol. COMPARISON: None. FINDINGS: The aorta is atherosclerotic but normal in caliber. The visible lung bases are clear. The heart size is normal withoutpericardial effusion. Surface nodularity of the liver as well as caudate lobe hypertrophy issuggestive of hepatic cirrhosis. No arterially-enhancing liver lesionsuspicious for hepatocellular carcinoma is identified. There is a smallthere are 0.6 cm arterially enhancing observation along the periphery of the right hepatic lobe, in hepaticsegment 8/5 (series 6 image 80) without evidence of washout orpseudocapsular enhancement, most likely representing vascular shunting. The hepatic arterial anatomy is conventional. The portal vein is patent.The umbilical vein is recanalized. No ascites or varices is identified.The spleen is enlarged and measures 14 cm in axial dimension. The gallbladder is normal without evidence of wall thickening,pericholecystic fluid, or gallstones. The intrahepatic and extrahepaticbile ducts are nondilated. The pancreas and adrenal glands are normal. Thekidneys enhance symmetrically. There is no evidence of renal calculus or hydronephrosis. The distal esophagus and stomach appear normal. The visualized portions ofthe small bowel and large bowel are normal in caliber without evidence ofwall thickening or obstruction. No free intraperitoneal air is seen. Nolymphadenopathy is identified. Bone windows demonstrate no suspicious lytic or blastic lesions. A discspacer is present at L4-5. IMPRESSION IMPRESSION: 1. Nodular hepatic surface with hypertrophy of the caudate lobe suggestiveof parenchymal liver disease. No arterially-enhancing hepatic lesions withwashout or pseudocapsule formation concerning for hepatocellularcarcinoma. A 0.6 cm arterially enhancing observation in the right hepatic lobe, hepatic segment 8/5likely represents vascular shunting (LR 3). Attention on follow-up isrecommended. Dictated by Jennifer Strickland M.D. (certified prosthetist vice president). I, Dr. Mariam LAWS M.D. have personally reviewed and interpreted thisexamination/study. This report was electronically signed by Mariam LAWS M.D. on06/17/2016 5:32 PM . Brandon Velasquez MD CT ORDERABLES * CREATININE BLOOD - POCT (IP) [facility] (06/17/2016) Creatinine POCT 1.06 0.3 - 1.3 mg/dL [facility] eGFR POCT 60 60 ml/min [facility] 06/17/2016 Brandon Velasquez MD LAB - POINT OF CARE ORDERABLES Performing Organization Address City/[facility]/ZIP Co de Phone Number [facility] * PT-INR [facility] (03/25/2016 2:39 PM CDT) INR 1.0 0.8 - 1.2 [facility] ([facility]) Comment: Reference interval is for non-anticoagulated patients. Suggested INR therapeutic range for Vitamin K antagonist therapy: Standard Dose (moderate intensity therapeutic range): 2.0 - 3.0 Higher intensity therapeutic range 2.5 - 3.5 PT 10.5 9.1 - 12.0 sec [facility]) Blood specimen (specimen) BLOOD SPECIMEN / Unknown 03/25/2016 2:39 PM CDT 03/25/2016 4:13 PM CDT Narrative [facility] ([facility]) - 03/28/2016 5:09 PM CDT Is patient on Heparin, Argatroban or Dabigatran?->N Performed at: 01 - [address] [id number] Occupational Therapy Director: Tan Groves PhD, Phone: [phone] Brandon Velasquez MD LAB - COAGULATION OR DERABLES Performing Organization Address City/[facility]/ZIP Co de Phone Number [facility]) * MITOCHONDRIAL ANTIBODY SCREEN (03/25/2016 2:39 PM CDT) Mitochondrial M2 Antibody <20.0 0.0 - 20.0 Units [facility] ([facility]) Comment: Negative 0.0 - 20.0 Equivocal 20.1 - 24.9 Positive >24.9 Mitochondrial (M2) Antibodies are found in 90-96% of patients with primary biliary cirrhosis. Blood specimen (specimen) BLOOD SPECIMEN / Unknown 03/25/2016 2:39 PM CDT 03/25/2016 4:13 PM CDT Narrative [facility] ([facility]) - 03/28/2016 5:09 PM CDT Performed at: 01 - [address] [id number] Occupational Therapy Director: Tan Groves PhD, Phone: [phone] Brandon Velasquez MD LAB - CHEMISTRY DWAIN ESPINOSA Performing Organization Address [facility]/ZIP Co de Phone Number [facility]) * SJWCC-4-WTNWNVNCOSD BLOOD PHENOTYPING PANEL (03/25/2016 2:39 PM CDT) Uuspx-3-Hgromerrjm n 188 90 - 200 mg/dL [facility] ([facility]) Phenotype MM [facility] ([facility]) Comment: Phenotype Population A-1-AT Concentration Incidence % Reference Interval MM 86.5% 96 - 189 MS 8.0% 83 - 161 MZ 3.9% 60 - 111 FM 0.4% 93 - 191 SZ 0.3% 42 - 75 SS 0.1% 62 - 119 ZZ 0.05% 16 - 38 FS 0.05% 70 - 128 FZ Unknown 44 - 88 FF Unknown Unknown Blood specimen (specimen) BLOOD SPECIMEN / Unknown 03/25/2016 2:39 PM CDT 03/25/2016 4:13 PM CDT Narrative [facility] ([facility]) - 03/28/2016 5:09 PM CDT Performed at: 01 - [address] [id number] Occupational Therapy Director: Tan Groves PhD, Phone: [phone] Performed at: [address] [id number] Occupational Therapy Director: Naldo Otero MD, Phone: [phone] Brandon Velasquez MD LAB - CHEMISTRY DWAIN ESPINOSA Performing Organization Address City/[facility]/ZIP Co de Phone Number [facility]) * TRANSFERRIN (03/25/2016 2:39 PM CDT) Transferrin 365 200 - 370 mg/dL [facility] (BEAKER) Blood specimen (specimen) BLOOD SPECIMEN / Unknown 03/25/2016 2:39 PM CDT 03/25/2016 4:13 PM CDT Narrative [facility] (BEAKER) - 03/28/2016 5:09 PM CDT Performed at: [address] [place] [id number] Occupational Therapy Director: Tan Groves PhD, Phone: [phone] Brandon Velasquez MD LAB - CHEMISTRY DWAIN ESPINOSA Performing Organization Address [facility] Co de Phone Number [facility] (BEAKER) * CERULOPLASMIN (03/25/2016 2:39 PM CDT) Ceruloplasmin 32.4 19.0 - 39.0 mg/dL [facility] Blood specimen (specimen) BLOOD SPECIMEN / Unknown 03/25/2016 2:39 PM CDT 03/25/2016 4:13 PM CDT Narrative [facility] (BEAKER) - 03/28/2016 5:09 PM CDT Performed at: [address] [place] [address] [id number] Occupational Therapy Director: Tan Groves PhD, Phone: [phone] Brandon Velasquez MD LAB - CHEMISTRY DWIAN ESPINOSA Performing Organization Address [facility] Co de Phone Number [facility] (BEAKER) * SMOOTH MUSCLE ANTIBODY (03/25/2016 2:39 PM CDT) Actin (Smooth Muscle) Antibody 6 0 - 19 Units [facility] (BEAKER) Comment: Negative 0 - 19 Weak positive 20 - 30 Moderate to strong positive >30 Actin Antibodies are found in 52-85% of patients with autoimmune hepatitis or chronic active hepatitis and in 22% of patients with primary biliary cirrhosis. 03/25/2016 2:39 PM CDT 03/25/2016 4:13 PM CDT Narrative [facility] (BEAKER) - 03/28/2016 5:09 PM CDT Performed at: [address] [place] [address] [id number] Occupational Therapy Director: Tan Groves PhD, Phone: [phone] Brandon Velasquez MD LAB - SEROLOGY ORDER GARRY [facility] ([facility]) * IRON BLOOD (03/25/2016 2:39 PM CDT) Iron 74 27 - 159 ug/dL [facility] ([facility]) Blood specimen (specimen) BLOOD SPECIMEN / Unknown 03/25/2016 2:39 PM CDT 03/25/2016 4:13 PM CDT Narrative [facility] ([facility]) - 03/28/2016 5:09 PM CDT Performed at: [address] [place] [id number] Occupational Therapy Director: Tan Groves PhD, Phone: [phone] Brandon Velasquez MD LAB - CHEMISTRY ORDDeja ESPINOSA Performing Organization Address [facility]/ZIP Co de Phone Number [facility] ([facility]) * FERRITIN (03/25/2016 2:39 PM CDT) Ferritin 43 15 - 150 ng/mL [facility] ([facility]) Blood specimen (specimen) BLOOD SPECIMEN / Unknown 03/25/2016 2:39 PM CDT 03/25/2016 4:13 PM CDT Narrative [facility] (BEAKER) - 03/28/2016 5:09 PM CDT Performed at: [address] [place] [address] [id number] Occupational Therapy Director: Tan Groves PhD, Phone: [phone] Brandon Velasquez MD LAB - CHEMISTRY DWAIN ESPINOSA Performing Organization Address City/[facility]/ZIP Co de Phone Number [facility] ([facility]) Care Teams Learning Consultant Relationship Specialty Start Date End Date Jean Carlos Huntley MD [address] [place] [address] PCP - General 07/26/22
--- OUTSIDE RECORDS SUMMARY | 2024-10-16 00:42 | XMS_ITS | Referral Summary ---
Author Organization [facility] [address] Address [address] [place] [address] Care Team Providers Care Advance Scout Name Role Phone Jean Carlos Huntley MD Primary Care Provider [phone] Encounters Date Type Department Care Team Description 09/23/2024 Telephone [facility] Gastroenterology [address] [place] [address] [place] [address] Connie Grace Reschedолег Appointment from Last 3 Months Allergies Active Allergy Reactions Criticality Noted Date [...] endoscopy for variceal screening. Will schedule at [facility]. - HE: Denies. - HCC screening: Last Ultrasound 11/02/2022 which showed no liver lesions, no ascites. Will continue to screen every 6 months for hepatocellular carcinoma with ultrasound and Alpha Fetoprotein Tumor (AFP). Next ultrasound to be scheduled locally at [facility] per patient preference in May 2023. 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 Room: [facility] ENDOSCOPY ROOM 8 Note Status: Finalized Procedure: Colonoscopy Indications: High risk colon cancer surveillance: Personalhistory of colonic polyps, Last colonoscopy: February 2023 Referring MD: Clarice Dos Santos MD Providers: Eliseo Hairston M.D. Medicines: Monitored Anesthesia Care Complications: No immediate complications. Estimated Blood Loss: Estimated blood loss was minimal. Procedure: Pre-Anesthesia Assessment: - [place] Protocol: - Pre-procedure Verification: Prior to theprocedure, [...] verifiedby the physician, the nurse and the cake press operator in the endoscopy suite. - Immediately prior [...] scope was passed under direct vision.The CF [id number] endoscope was introduced through the anus and advanced to the cecum, identified by appendiceal orifice and ileocecal valve. The colonoscopy was performed without difficulty. The patient tolerated the procedure well. The qualityof the bowel preparation was evaluated using the BBPS ([place] Bowel Preparation Scale) with scores of:Right Colon [...] >90 90 - 130 mL/min/1. 73 m2 [facility] Comment: Interpretive Data Reference Interval Normal >/= [...] MD LAB BLOOD ORDERABLES Final Res ult [facility] Department [place] [address] * POCT lipid panel (08/14/2019 4:32 PM AQUACULTURE DIRECTOR) Cholesterol, POC 318 mg/dL HDL, POC 49 mg/dL Triglycerides, POC 256 mg/dL LDL Cholesterol POC 217 mg/dL Chol/HDL Ratio, POC 6.5 Non-HDL Cholesterol, POC 268 mg/dL Cholesterol Total, POC 318 mg/dL Blood spot 08/14/2019 4:32 PM AQUACULTURE DIRECTOR us Nico Wheeler MD POINT OF CARE TEST ORDER GARRY Final Result from Last 3 Months or Most Recently Relevant to Health Maintenance Insurance [facility] PL[facility] Advance Directives For more information, please contact: [phone] * Full Code (Latest Code Status on File) Date Activated Date Inactivated Comments 03/25/2024 9:23 AM 03/25/2024 4:42 PM * Full Code Date Activated Date Inactivated Comments 03/03/2023 8:06 AM 03/03/2023 3:06 PM Care Teams Advance Scout Relationship Specialty Start Date End Date Jean Carlos Huntley MD PCP - General Family Medicine 05/31/19
--- OUTSIDE RECORDS SUMMARY | 2024-10-16 00:42 | XMS_ITS | Clinical Summary ---
Author Organization [facility] Address [address] [place] [address] Care Team Providers Care Laundry Worker Name Role Phone Jean Carlos Huntley MD Primary Care Provider [phone] Source Comments [facility],non-owned Affiliates and Associated Physician Practices is amultiple site organization consisting of ambulatory clinics and hospital sitesin [place], [place], [place] and [place]. This disclosure is being madepursuant to the Care Everywhere program and may not contain all information available regarding this patient. Last updated 18.[facility] Social History Tobacco Use Types Packs/Day Years Used Date Smoking Tobacco: Never Assessed Sex and Gender Information Value Date Recorded Sex Assigned at Not on file Gender Identity Not on file Sexual Orientation Not on file Last Filed Vital Signs Vital Sign Reading Time Taken Comments Blood Pressure 154/103 06/24/2016 1:10 PM PIT [facility]MAN Pulse 80 06/24/2016 1:10 PM [facility] Temperature 36.7 C (98.1 F) 06/24/2016 1:10 PM [facility] Respiratory Rate 18 06/24/2016 1:10 PM [facility] Oxygen Saturation 96% 06/24/2016 1:10 PM [facility] Inhaled Oxygen Concentration - - Weight 102.2 kg (225 lb 6.4 oz) 06/24/2016 1:10 PM [facility] Height 175.3 cm (5' 9 ) 06/24/2016 1:10 PM [facility] Body Mass Index 33.29 06/24/2016 1:10 PM [facility] Plan of Treatment Health Maintenance Due Date Last Done Comments COLOGUARD (AGES 45-75) - COL ON CA SCREENING 1971 COLON MONITORING 1971 COLONOSCOPY - COLON CA SCREENING 1971 CT COLONOGRAPHY - COLON CA SCREENING 1971 Colorectal Cancer Screening 1971 FIT - COLON CA SCREENING 1971 FLEX SIG - COLON CA SCREENING 1971 LIPID TESTING 1971 MAMMOGRAM 1971 PAP SMEAR 1971 HIV SCREENING 1986 HEPATITIS C SCREENING 09/25/1989 DTAP/TDAP/TD VACCINES (1 - Tdap) 1990 HEPATITIS B VACCINE (1 of 3 - 19+ 3-dose series) 1990 PNEUMOCOCCAL VACCINE 50+ (1 of 1 - PCV) 2021 ZOSTER VACCINE (1 of 2) 2021 COVID-19 VACCINE (1 - 2023-2 5 season) 2024 INFLUENZA VACCINE (#1) 2024 DEPRESSION SCREENING 08/07/2024 HIB VACCINE Aged Out No longer eligi ble based on patient's age to complete this topic HPV VACCINE Aged Out No longer eligi ble based on patient's age to complete this topic MENINGOCOCCAL (Group B) VACCINE Aged Out No longer eligible based on patient's age to complete this topic MENINGOCOCCAL VACCINE Aged Out No lynda moriah eligible based on patient's age to complete this topic PNEUMOCOCCAL VACCINE Aged Out No long er eligible based on patient's age to complete this topic Care Teams Laundry Worker Relationship Specialty Start Date End Date Jean Carlos Huntley MD [address] [place] [address] PCP - General 07/26/22
--- OUTSIDE RECORDS SUMMARY | 2024-10-16 00:42 | XMS_ITS | Encounter Summary ---
Author Organization [facility] Address [address] [place] [address] Phone Care Team Providers Care Electroneurodiagnostic Technician Name Role Phone Jean Carlos Huntley MD Primary Care Provider [phone] Encounter Details Date Type Department Care Team (Late st Contact Info) Description 09/27/2023 Orders Only [facility] Scanning, Provider Social History Tobacco Use Types Packs/Day Years Used Date Smoking Tobacco: Every Day Cigarettes Smokeless Tobacco: Never Personal Safety Answer Date Recorded Have you ever been in or are you currently in a harmful physical or emotional relationship or is someone making you feel afraid or unsafe? 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 [employer] Gender Identity Not on file Sexual Orientation Not on file documented as of this encounter Plan of Treatment Not on file documented as of this encounter Procedures Procedure Name Priority Date/Time Associated Diagnosis Comments SCAN - RADIOLOGY/IMAGING 09/27/2023 documented in this encounter Results * SCAN - RADIOLOGY/IMAGING (09/27/2023) Anatomical Region Laterality Modality Other us Provider Scanning Final Result documented in this encounter Visit Diagnoses Not on filedocumented in this encounter Care Teams Electroneurodiagnostic Technician Relationship Specialty Start Date End Date Jean Carlos Huntley MD PCP - General Family Medicine 05/31/19 documented as of this encounter
--- OUTSIDE RECORDS SUMMARY | 2024-10-16 00:42 | XMS_ITS | Encounter Summary ---
Author Organization [facility] Address 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 Name Role Phone Jean Carlos Huntley MD Primary Care Provider [phone] Encounter Details Date Type Department Care Team (Late st Contact Info) Description 10/12/2024 External Device Data [facility] ABSTRACTION Provider, Abstract NO ADDRESS ON FILE Social History Tobacco Use Types Packs/Day Years Used Date Smoking Tobacco: Every Day Cigarettes 1 25.7 Started: 02/12/1999 Smokeless Tobacco: Never Alcohol Use Standard Drinks/Week Comments Not Currently 0 (1 standard drink = 0.6 oz pur e alcohol) Comments Unknown Sex and Gender Information Value Date Recorded Sex Assigned at Not on file 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 [address] PCP - General Family Practice 11/10/22 documented as of this encounter
--- NOTE | 2024-10-16 06:57 | P.OP_ITS ---
Procedure Note - Detailed Date of Procedure 10/16/24 Pre-op Diagnosis Right Cubital Tunnel Syndrome Post-op Diagnosis Same Procedure Performed right CuTR Surgeon Teodoro Sosa MD Optometric Coordinator vernon cordero pa-c Anesthesia MAC Description of Procedure INFORMED CONSENT:The patient was seen and examined and marked in the pre-op area.? The patient signed the consent form. PROCEDURE IN DETAIL: The patient taken back to OR on the stretcher in supine position. Time out performed with anesthesia, surgeon and staff agreeing on patient's name site and surgery to be performed SCDs were placed on the lower extremities and inflated A tourniquet was placed on {right} upper extremity and antibiotics given IV After anesthesia administered sedation I injected {8}cc 1%lido with epi and 0.5% marcaine plain at the operative site The?{right upper extremity}?was prepped and draped in sterile fashion the??{right upper extremity} was??exsanguinated with Esmarch bandage and tourniquet inflated to 250mmHg I next proceeded with making a longitudinal incision between two heads for flexor carpi ulnaris at end of {right} cubital tunnel with 15 blade scalpel.? Littler scissors were used to spread down to FCU fascia.? An incision was made in FCU fascia and ulnar nerve identified exiting cubital tunnel.? I proceeded with complete retrograde release of the cubital tunnel including 7cm proximal for the intermuscular septum.? The nerve appeared healthy with visible vaso nervorum.? There was no subluxation on full elbow range of motion. ? I irrigated with normal saline and closure with 4-0 monocryl for dermis and subcuticular. The incision was covered with Dermabond then 4x4s, shelia, and a posterior elbow splint for patient safety, security and comfort and secured with reji bandages after the tourniquet was let down noting the hand was warm and well perfused.? Patient awaken from anesthesia and transferred to recovery in stable condition Complications - none EBL- 1cc Disposition - home in stable conditions vernon cordero pa-c was essential for positioning, retraction, closure and michael ssing placement [facility] Billing Surgery - Charge Forward: Surgery Billing ([id number] for vernon)
--- NOTE | 2024-10-16 06:57 | PM.HPGS ---
History of Present Illness History of Present Illness Chief complaint: Right Cubital Tunnel Syndrome Narrative: Patient seen and examined in pre-operative holding area. No interval change in medical history or symptoms. Patient recalls previous discussion of benefits and alternatives to procedure. Continues to desire to proceed with right cubital tunnel release. Reviewed procedure, post-op expectations and risks including but not limited to bleeding, infection, injury to tendon/nerve/vessel, decreased hand function, stiffness, RSD, no change or worsening of symptoms. I discussed the possible use of assistants and their participation in the case. Patient stated understanding and signed the consent form wishing to proceed. Review of Systems Review of Systems: All systems reviewed & are unremarkable except as noted in HPI and below PMFSH Past Medical History Medical History Marijuana abuse edibles ETOH abuse daily ETOH Numbness and tingling in right hand Diabetes type 2, controlled BMI 36.0-36.9,adult Cirrhosis Vaginal bleeding Elevated hemoglobin BMI over 35 BMI 32.0-32.9,adult Chronic nasal congestion Screening mammogram for high-risk patient Diabetes mellitus Tobacco abuse BMI 34.0-34.9,adult BMI 33.0-33.9,adult UTI (urinary tract infection) Insomnia Nausea & vomiting Anxiety Essential hypertension Uncontrolled type 2 diabetes mellitus with hyperglycemia Surgical History Surgical History Hx of endoscopy Hx of colonoscopy Family History Family History Father Acute myocardial infarction Heart disease Bladder cancer Mother Diabetes mellitus Heart disease Sibling Diabetes mellitus Sibling , 56 Acute myocardial infarction Other Family history of cardiovascular disease Family history of malignant neoplasm Hypertension Social History Social History Social History: Caffeine-tea Smoking packs per day: 1.5 Smoking cigarettes per day: 30.0 Years smoked: 34 Smoking pack-years: 51.00 Smoking status: Current every day smoker Tobacco type: cigarettes Second hand tobacco smoke exposure: Yes Additional smoking assessment comments: Down to 1 pack a day at present. 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 Gender identity (if verbalized by the patient): Female Spiritual care concerns: No Meds Home Medications and Allergies Home Medications ?Medication ?Instructions ?Recorded ?Confirmed ?Type losartan 100 mg tablet 100 mg PO DAILY #90 tabs 08/24/23 10/04/24 Rx empagliflozin 25 mg tablet 25 mg PO QAM #90 tabs 02/23/24 10/04/24 Rx (Jardiance) pantoprazole 40 mg tablet,delayed 40 mg PO DAILY 05/20/24 10/04/24 History release rosuvastatin 20 mg tablet 20 mg PO DAILY #90 tabs 07/11/24 10/04/24 Rx alprazolam 0.25 mg tablet (Xanax) 0.25 mg PO TID #60 tabs 08/12/24 10/04/24 Rx metoprolol succinate 25 mg 25 mg PO DAILY #90 tabs 09/20/24 10/04/24 Rx tablet,extended release 24 hr Allergies Allergy/AdvReac Type Severity Reaction Status Date / Time amoxicillin Allergy Unknown Rash Verified 10/04/24 14:23 lisinopril AdvReac Intermediate Cough Verified 10/04/24 14:23 Exam Narrative: unchanged Assessment and Plan Assessment and plan (1) Ulnar nerve compression: Qualifiers: Laterality: right Qualified Code(s): G56.21 - Lesion of ulnar nerve, right upper limb Code(s): G56.20 - Lesion of ulnar nerve, unspecified upper limb Status: Acute Assessment and Plan: cont as above
--- NOTE | 2024-10-16 09:22 | WPDANESEPP ---
Anes - Eval Pre Procedure Procedure: Operation Date: 10/16/24 14:30 Proposed Procedures p Right Cubital Tunnel Release - Teodoro Sosa MD Date/Time: 10/16/24 09:22 Surgeon: katty Pre Op Diagnosis: Right Cubital Tunnel Syndrome Patient Data Age: 54 Gender: F Height: 1.74 m Weight: 95.5 kg Allergies Allergy/AdvReac Type Severity Reaction Status Date / Time amoxicillin Allergy Unknown Rash Verified 10/04/24 14:23 lisinopril AdvReac Intermediate Cough Verified 10/04/24 14:23 Home Medications ?Medication ?Instructions ?Recorded ?Confirmed ?Type losartan 100 mg tablet 100 mg PO DAILY #90 tabs 08/24/23 10/04/24 Rx empagliflozin 25 mg tablet 25 mg PO QAM #90 tabs 02/23/24 10/04/24 Rx (Jardiance) pantoprazole 40 mg tablet,delayed 40 mg PO DAILY 05/20/24 10/04/24 History release rosuvastatin 20 mg tablet 20 mg PO DAILY #90 tabs 07/11/24 10/04/24 Rx alprazolam 0.25 mg tablet (Xanax) 0.25 mg PO TID #60 tabs 08/12/24 10/04/24 Rx metoprolol succinate 25 mg 25 mg PO DAILY #90 tabs 09/20/24 10/04/24 Rx tablet,extended release 24 hr Patient hx anesthesia problems: none Family hx anesthesia problems: none Results Review: All pre-operative results and documents have been reviewed as part of the pre-operative evaluation. [facility] Past Medical History Medical History Marijuana abuse edibles ETOH abuse daily ETOH Numbness and tingling in right hand Diabetes type 2, controlled BMI 36.0-36.9,adult Cirrhosis Vaginal bleeding Elevated hemoglobin BMI over 35 BMI 32.0-32.9,adult Chronic nasal congestion Screening mammogram for high-risk patient Diabetes mellitus Tobacco abuse BMI 34.0-34.9,adult BMI 33.0-33.9,adult UTI (urinary tract infection) Insomnia Nausea & vomiting Anxiety Essential hypertension Uncontrolled type 2 diabetes mellitus with hyperglycemia Surgical History Surgical History Hx of endoscopy Hx of colonoscopy Family History Family History Father Acute myocardial infarction Heart disease Bladder cancer Mother Diabetes mellitus Heart disease Sibling Diabetes mellitus Sibling , 56 Acute myocardial infarction Other Family history of cardiovascular disease Family history of malignant neoplasm Hypertension Social History Social History Social History: Caffeine-tea Smoking packs per day: 1.5 Smoking cigarettes per day: 30.0 Years smoked: 34 Smoking pack-years: 51.00 Smoking status: Current every day smoker Tobacco type: cigarettes Second hand tobacco smoke exposure: Yes Additional smoking assessment comments: Down to 1 pack a day at present. 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
[2024-10-16 12:30] VITALS: BP 158/111; PULSE 100; RESP 14; TEMP 36.1; O2SAT 99; BMI 30.9
--- NOTE | 2024-10-16 12:31 | P.PNAN_ITS ---
Anes - Initial Pre Proc Eval Procedure: Operation Date: 10/16/24 14:30 Proposed Procedures p Right Cubital Tunnel Release - Teodoro Sosa MD Date/Time: 10/16/24 12:31 Surgeon: Teodoro Sosa MD Pre Op Diagnosis: Right Cubital Tunnel Syndrome Patient Data Age: 54 Gender: F Height: 1.74 m Weight: 95.5 kg Allergies Allergy/AdvReac Type Severity Reaction Status Date / Time amoxicillin Allergy Unknown Rash Verified 10/04/24 14:23 lisinopril AdvReac Intermediate Cough Verified 10/04/24 14:23 Home Medications ?Medication ?Instructions ?Recorded ?Confirmed ?Type losartan 100 mg tablet 100 mg PO DAILY #90 tabs 08/24/23 10/04/24 Rx empagliflozin 25 mg tablet 25 mg PO QAM #90 tabs 02/23/24 10/04/24 Rx (Jardiance) pantoprazole 40 mg tablet,delayed 40 mg PO DAILY 05/20/24 10/04/24 History release rosuvastatin 20 mg tablet 20 mg PO DAILY #90 tabs 07/11/24 10/04/24 Rx alprazolam 0.25 mg tablet (Xanax) 0.25 mg PO TID #60 tabs 08/12/24 10/04/24 Rx metoprolol succinate 25 mg 25 mg PO DAILY #90 tabs 09/20/24 10/04/24 Rx tablet,extended release 24 hr Patient hx anesthesia problems: none Family hx anesthesia problems: none Results Review: All pre-operative results and documents have been reviewed as part of the pre- operative evaluation. [facility] Past Medical History Medical History Marijuana abuse edibles ETOH abuse daily ETOH Numbness and tingling in right hand Diabetes type 2, controlled BMI 36.0-36.9,adult Cirrhosis Vaginal bleeding Elevated hemoglobin BMI over 35 BMI 32.0-32.9,adult Chronic nasal congestion Screening mammogram for high-risk patient Diabetes mellitus Tobacco abuse BMI 34.0-34.9,adult BMI 33.0-33.9,adult UTI (urinary tract infection) Insomnia Nausea & vomiting Anxiety Essential hypertension Uncontrolled type 2 diabetes mellitus with hyperglycemia Surgical History Surgical History Hx of endoscopy Hx of colonoscopy Family History Family History Father Acute myocardial infarction Heart disease Bladder cancer Mother Diabetes mellitus Heart disease Sibling Diabetes mellitus Sibling , 56 Acute myocardial infarction Other Family history of cardiovascular disease Family history of malignant neoplasm Hypertension Social History Social History Social History: Caffeine-tea Smoking packs per day: 1.5 Smoking cigarettes per day: 30.0 Years smoked: 34 Smoking pack-years: 51.00 Smoking status: Current every day smoker Tobacco type: cigarettes Second hand tobacco smoke exposure: Yes Additional smoking assessment comments: Down to 1 pack a day at present. 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 Informed Consent: The patient's anesthetic plan and its attendant risks and benefits were discussed with the patient/family/POA. Questions were solicited and answers provided to the satisfaction of the patient/family/POA.
[2024-10-16 12:52] LABS: Glucose Point of Care 165 mg/dl (65-105)
[2024-10-16] MEDS: LACTATED RINGERS 1,000 ML 30 ML IV CONT (12:57)
[2024-10-16] MEDS: ceFAZolin 2 GM/D5W 50 ML 2 GM/50 ML BAG IVPB (13:08)
[2024-10-16] MEDS: LIDO 1%/EPINEPHRINE 1:100,000 20 ML VIAL 10 ML INFILTRATE (13:14)
[2024-10-16 13:31] VITALS: BP 115/83; PULSE 110; RESP 16; O2SAT 97
[2024-10-16 13:41] LABS: BEDSIDEPREGUCG Negative (Negative)
[2024-10-16 14:00] VITALS: BP 141/87; PULSE 95
[2024-10-16 14:00] LABS: Glucose Point of Care 158 mg/dl (65-105)
[2024-10-16 14:15] VITALS: BP 147/87; PULSE 88
== END 2024-10-16 14:23 | disposition home or self-care (01) ==
PROVIDERS: Physician Assistant Surgical; PCP Family Medicine; Visit Provider Plastic Surgery
PROC: (CPT 64721; principal; 2024-10-16 14:30)
DX: G56.21 Lesion of ulnar nerve, right upper limb (principal); I10 Essential (primary) hypertension; E11.65 Type 2 diabetes mellitus with hyperglycemia; K74.60 Unspecified cirrhosis of liver; G47.00 Insomnia, unspecified; F41.9 Anxiety disorder, unspecified; R09.81 Nasal congestion; F17.210 Nicotine dependence, cigarettes, uncomplicated; F12.90 Cannabis use, unspecified, uncomplicated; E66.9 Obesity, unspecified; Z68.30 Body mass index [BMI] 30.0-30.9, adult; Z79.84 Long term (current) use of oral hypoglycemic drugs; Z98.890 Other specified postprocedural states; Z80.52 Family history of malignant neoplasm of bladder; Z82.49 Family history of ischemic heart disease and other diseases of the circulatory system
CPT/HCPCS: 64718; 82948; J0690; J2004; J2250; J2704; J3010; J7120